=== PATIENT | male | born 2000 | race African-American/Black ===

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

== ENCOUNTER 2021-05-25 18:30 | Emergency (ER) | payer OTHER ==
[~2021-05-25 18:30] MED LIST changes: +IBUPROFEN800 MG PO
[2021-05-25 19:56] LABS: HEMOGLOBIN 15.5 gm/dl (14.0-17.5); RED BLOOD COUNT 5.06 M/UL (4.20-5.50); WHITE BLOOD COUNT 5.7 K/UL (4.5-11.0)
[2021-05-25 20:26] LABS: BUN/CREATININE RATIO 18 (0-10)
[2021-05-25] MEDS ORDERED: ONDANSETRON ODT4 MG SL (22:23)
[2021-05-25] MEDS ORDERED: OMEPRAZOLE20 M1 PO (22:23)
== END 2021-05-25 22:30 | disposition home or self-care (01) ==
LOC: ER1 18:30
PROVIDERS: Physician Assistant
DX: R10.11 Right upper quadrant pain (principal); R10.12 Left upper quadrant pain; R10.13 Epigastric pain; R11.0 Nausea; R19.7 Diarrhea, unspecified; F17.290 Nicotine dependence, other tobacco product, uncomplicated; R10.811 Right upper quadrant abdominal tenderness; R10.812 Left upper quadrant abdominal tenderness
CPT/HCPCS: 72100; 80053; 81001; 83690; 85025; 87086; 96374; 99284; J1885; Q9967